=== PATIENT | female | born 1980 | race African-American/Black ===

== ENCOUNTER 2020-08-08 19:55 | Emergency (ER) | payer SELFPAY ==
[~2020-08-08] VITALS: Ht 167.6 cm; Wt 59.0 kg
[2020-08-08] MEDS ORDERED: SODIUM CHLORIDE 0.9% 1,000 ML IV ONE (21:45)
[2020-08-08 22:52] LABS: BASOPHILS % 1.2 % (0.0-2.0); EOSINOPHILS % 0.5 % (0.0-5.0); HEMATOCRIT. 32.2 % (36.0-48.0); HEMOGLOBIN. 10.5 g/dL (12.0-16.0); LYMPHOCYTES % 36.2 % (20.0-50.0); MEAN CORPUSCULAR HEMOGLOBIN 26.7 pg (28.0-32.0); MEAN CORPUSCULAR VOLUME 81.9 fL (81.0-99.0); MEAN PLATELET VOLUME 8.5 fl (7.4-10.4); NEUTROPHILS % 55.1 % (40.0-76.0); PLATELET 212 x1000/uL (130-400); RED BLOOD CELL COUNT 3.93 mill/uL (4.2-5.4); RED CELL DISTRIBUTION WIDTH 19.9 % (11.6-14.6)
[2020-08-08 22:57] LABS: CHLORIDE 113 mEq/L (98-107)
[2020-08-08 23:03] LABS: HCG SCREEN NEGATIVE
[2020-08-08 23:11] LABS: ETHANOL BLOOD 316 mg/dL
[2020-08-08] MEDS ORDERED: POTASSIUM CHLORIDE 20MEQ TABLET SR PO ONE (23:45)
[2020-08-09 03:00] VITALS: BP 109/62
== END 2020-08-09 03:22 | disposition home or self-care (01) ==
LOC: ER 20:00
DX: F10.229 Alcohol dependence with intoxication, unspecified (principal); E87.6 Hypokalemia; Y90.8 Blood alcohol level of 240 mg/100 ml or more
CPT/HCPCS: 36415; 70450; 80053; 80320; 82962; 84703; 85025; 93005; 96360; 96361; 99285; J7030; G0480